=== PATIENT | female | born 1960 | race Asian ===

== ENCOUNTER 2017-08-20 09:36 | Emergency (ER) | payer MEDICAID ==
[2017-08-20 13:28] VITALS: BP 132/74
== END 2017-08-20 13:28 | disposition home or self-care (01) ==
LOC: ED 09:36
DX: J11.1 Influenza due to unidentified influenza virus with other respiratory manifestations (principal); R07.89 Other chest pain; E11.9 Type 2 diabetes mellitus without complications; I10 Essential (primary) hypertension
CPT/HCPCS: J1885; J7030; Q0092